=== PATIENT | female | born 1940 | race Caucasian/White ===

== ENCOUNTER → 2016-08-09 | Outpatient (CLI) | payer MEDICARE ==
[~2016-08-09] MED LIST: AMLO5TAB2 PO; ASP81TEC PO; ATOR20TA66 PO; CARV25TA PO; CHOL10002 GT; FISH OIL OMEGA1 EACH PO; FOLI1TAB24 PO; SERT50TA PO
--- NOTE | 2016-08-13 19:03 | Diagnostic Imaging Report ---
EXAMINATION: Digital mammogram bilateral screening. INDICATION: Screening. COMPARISON: This study was compared to the prior exam of 06/13/2011 and 03/07/2010. At this time, there are no current complaints. The current study was also evaluated with a Computer Aided Detection (CAD) system. FINDINGS: The fibroglandular tissue in both breasts is heterogeneously dense. This does limit the sensitivity of this exam. Overall, there does not appear to have been any significant change when compared to the prior study. No primary or secondary sign of malignancy is noted. The stereotactic clip in the right breast seen previously is again visualized and no different. IMPRESSION: 1. There is no evidence for malignancy. 2. The patient should have her annual bilateral screening mammogram on schedule in July of 2017. ACR BI-RADS Category 1: Negative. Result letter will be mailed to the patient. Note: At least 10% of breast cancer is not imaged by mammography. Dictated by: Dictated on workstation # [id number]
== END ==
LOC: RAD 09:32
PROVIDERS: ATTEND Nurse Practitioner Family
DX: Z12.31 Encounter for screening mammogram for malignant neoplasm of breast (principal)
CPT/HCPCS: 77067

== ENCOUNTER → 2017-08-13 | Outpatient (CLI) | payer MEDICARE | LOC: CARD 08:33 | PROVIDERS: ATTEND Internal Medicine Cardiovascular Disease | DX: I25.10 Atherosclerotic heart disease of native coronary artery without angina pectoris (principal); I10 Essential (primary) hypertension; E78.2 Mixed hyperlipidemia; I47.1 Supraventricular tachycardia; I08.0 Rheumatic disorders of both mitral and aortic valves | CPT/HCPCS: 93306; 93351 ==

== ENCOUNTER 2019-01-29 08:47 | Day surgery (SDC) | payer MEDICARE ==
[2019-01-29] VITALS (12 sets, daily range): BP systolic 108–172; BP diastolic 61–95
[~2019-01-29] VITALS: Ht 163 cm; Wt 57.0 kg
[2019-01-29] MEDS ORDERED: LIDOCAINE 1% INJ 20 ML 20 ML VIAL ONE (08:49)
[2019-01-29] MEDS ORDERED: HEParin (CATH LAB) 2,000 ML IV ONE (08:49)
[2019-01-29] MEDS ORDERED: NS IV 1000 ML 1,000 ML IV SCH (09:00)
[2019-01-29 09:17] LABS: MEAN PLATELET VOLUME 9.9 FL (7.4-10.4); RED CELL DISTRIBUTION WIDTH 12.9 % (10.0-14.5); WHITE BLOOD COUNT 6.8 10^3/uL (4.3-11.0)
[2019-01-29 09:36] LABS: ALANINE AMINOTRANSFERASE 21 U/L (0-55); ALBUMIN 4.5 GM/DL (3.2-4.5); ALKALINE PHOSPHATASE 69 U/L (40-136); BILIRUBIN,TOTAL 0.7 MG/DL (0.1-1.0); BUN/CREATININE RATIO 14; CALCIUM 9.6 MG/DL (8.5-10.1); CARBON DIOXIDE 29 MMOL/L (21-32); CHLORIDE 104 MMOL/L (98-107); CHOLESTEROL 186 MG/DL (< 200); CREATININE SERUM 0.85 MG/DL (0.60-1.30); GFR ESTIMATED > 60; GLUCOSE 101 MG/DL (70-105); HDL CHOLESTEROL 55 MG/DL (40-60); POTASSIUM 3.6 MMOL/L (3.6-5.0); SODIUM 140 MMOL/L (135-145); TOTAL PROTEIN 8.1 GM/DL (6.4-8.2); TRIGLYCERIDES 133 MG/DL (<150); VLDL CHOLESTEROL 27 MG/DL (5-40)
[2019-01-29] MEDS ORDERED: ASPI-983 PO (09:36)
[2019-01-29] MEDS ORDERED: OMEG-160 PO (09:36)
[2019-01-29] MEDS ORDERED: CHOL200012 PO (09:36)
[2019-01-29] MEDS ORDERED: AMLO5TAB9 PO (09:36)
[2019-01-29] MEDS ORDERED: CYAN-41 PO (09:36)
[2019-01-29] MEDS ORDERED: FOLI1TAB24 PO (09:36)
[2019-01-29] MEDS ORDERED: ATOR10TA66 PO (09:36)
[2019-01-29] MEDS ORDERED: CARV25TA PO (09:36)
[2019-01-29] MEDS ORDERED: ACET325T38 PO (09:43)
[2019-01-29] MEDS ORDERED: FLUT16SP22 NSEACH (09:43)
--- NOTE | 2019-01-29 09:44 | NUR ---
SPOKE WITH PT-SHE DID NOT HAVE HER BOTTLES BUT BROUGHT IN A MED LIST, I CALLED [facility] TO VERIFY MEDS AND WITH THIS I WAS ABLE TO COMPLETE THE MED REC. ALL MEDICATIONS HAD GOOD DATING PER [facility] AND THE PT WAS ABLE TO TELL ME HOW SHE TAKES HER MEDS. OTC MEDS: ASPIRIN 81M HS VITAMIN D3: 1 HS VITAMIN B12: 1 HS ACETAMINOPHEN 325M Q 8 H PRN FLONASE: UD PRN FISH OIL: 1 CAP HS
--- NOTE | 2019-01-29 09:47 | Diagnostic Imaging Report ---
INDICATION: Coronary artery disease Frontal chest obtained at 9:24 a.m. and is compared to 01/03/09. There is poststernotomy change with mild cardiomegaly. There are no focal infiltrates. There is no pneumothorax or pleural fluid. IMPRESSION: Cardiomegaly with postoperative changes. No acute infiltrate or pleural fluid. Dictated by: Dictated on workstation # [id number]
[2019-01-29] MEDS ORDERED: MIDAZOLAM 5 MG/5 ML (VERSED) VIAL ONE (09:57)
[2019-01-29] MEDS ORDERED: fentaNYL INJECTION 100 MCG/2 ML AMP ONE (09:58)
[2019-01-29] MEDS ORDERED: NITRO DRIP 25000 MCG/D5W 250 ML IV ONE (10:38)
[2019-01-29] MEDS ORDERED: HEParin 1000 UNIT/ML (10ML VIAL) FOR BOLUS ONE (10:38)
[2019-01-29] MEDS ORDERED: EPTIFIBATIDE BOLUS 0 ML IV ONE (10:39)
[2019-01-29] MEDS ORDERED: ATROPINE INJECTION 1 MG/10 ML SYR (ABBOTT) ONE (11:30)
[2019-01-29] MEDS ORDERED: ASPIRIN 325 MG (5 GR) TABLET ONE (11:55)
[2019-01-29] MEDS ORDERED: TICAGRELOR 90 MG TABLET (BRILINTA) PO ONE (11:56)
--- NOTE | 2019-01-29 11:58 | Cardiac Procedure Note-CS/ASA ---
Pre-Procedure Note Pre-Op Procedure Note H&P Reviewed The H&P was reviewed, patient examined and no changes noted. Date H&P Reviewed: Jan 29, 2019 Time H&P Reviewed: 11:58 Conscious Sedation Pre-Proced Time 11:58 ASA Score 3 For ASA 3 and 4: Consider anesthesia and medical clearance. Also, for patients with a history of failed moderate sedation consider anesthesia. Airway Lungs Heart ASA score ASA 1: a normal healthy patient ASA 2: a patient with a mild systemic disease (mid diabetes, controlled hypertension, obesity x ASA 3: a patient with a severe systemic disease that limits activity (angina, COPD, prior Myocardial infarction) ASA 4: a patient with an incapacitating disease that is a constant threat to life (CHF, renal failure) ASA 5: a moribund patient not expected to survive 24 hrs. (ruptured aneurysm) ASA 6: a declared brain- patient whose organs are being harvested. For emergent operations, add the letter E after the classification Mallampati Classification Grade 3 Sedation Plan Analgesia, Amnesia, Plan communicated to team members, Discussed options with patient/fam, Discussed risks with patient/fam The patient is an appropriate candidate to undergo the planned procedure, sedation, and anesthesia. The patient immediately re-assessed prior to indication. JOSE BOATENG MD Jan 29, 2019 11:58
[2019-01-29] MEDS: NS IV 1000 ML 1,000 ML IV SCH ×2 (12:06→18:45)
[2019-01-29] MEDS ORDERED: PATIENT MAY USE OWN MEDS, ALL PO SCH (12:15)
[2019-01-29] MEDS ORDERED: FLUTICASONE NASAL SPRAY (FLONASE) 16 GM BTL NS PRN (12:15)
[2019-01-29] MEDS ORDERED: ACETAMINOPHEN 325 MG TABLET PO PRN (12:15)
--- NOTE | 2019-01-29 12:24 | NUR ---
patient arrived on unit at this time. Upon checking groin site with cathlab RN EFRAIN noted hematoma forming et shadowing on dressing. KT RN applied groin pressure for approx 15 minutes. Upon completion this nurse et DISHA RN checked groin again et noted possible hematoma forming again, at that time EJ RN held pressure for approx 15 more minutes. This nurse came to check groin site again upon competion. No hematoma noted upon recheck.
--- NOTE | 2019-01-29 14:33 | Cardiac Cath Report ---
Cardiac Cath Report Physician (s)/Menagerie Superintendent (s) Physician JOSE BOATENG MD Pre-Procedure Diagnosis Pre-Procedure Diagnosis: Chest pain, coronary artery disease Post-Procedure Note Procedure Start Date: Jan 29, 2019 Name of Procedure: Left heart catheterization Vein graft angiogram PERALTA angiogram PTCA with stent to the right coronary artery Findings/Procedure Note PROCEDURE NOTE: 78-year-old lady with history of coronary artery disease, CABG 2, has been having accelerating angina, scheduled for cardiac catheterization possible PTCA After explaining the procedure to the patient, all pros and cons were explained, all questions were answered. The patient signed the consent and then she was placed on the cardiac catheterization laboratory. Groin was prepped SL fashion local anesthesia was used. Sheath placed in the artery. John right and left catheter were used to access the coronary system.Vein Graft evaluated. PERALTA evaluated. Pigtail was used to access the left ventricular cavity. Left ventriculogram was done showing normal left ventricle size and function with ejection fraction 60 percent Patient was noted to have occlusion of the PERALTA and a vein graft, severe stenosis at the proximal and mid LAD and subtotal occlusion at the midright coronary artery, I decided to proceed with intervention on the right coronary artery, 6000 units of heparin were given then I used JR guide that into the right coronary artery but I was unable to advance the wire through the artery due to the position of the guide, I exchanged it into short tip right coronary guide without success day and modified the right coronary artery and attempted again without success then used AR 1 without success then I used Gilbert guide that was successful in accessing the right coronary artery, had difficulty advancing the wire through the subtotal occlusion then predilated with 2.0 balloon. I was unable to advance the stent subsequently I used 2.5 balloon with multiple inflation, still was unable to advance the stent I readvanced the balloon then advanced guide-liner parted distally removed the balloon and advanced resolute integrity 2.2522 mm Medtronic stent positioned it carefully, during that period patient had ST elevation transient episode of bradycardia responded to atropine then did multiple inflation then advanced noncompliant balloon without success in advancing to the stent I removed the noncompliant balloon and used a compliant 2.515 mm balloon and did multiple inflation up to 16 halie in the proximal portion with excellent results At the end of the procedure the sheath was removed. Closure device was used FINDINGS: Hemodynamics LV 94/17, end-diastolic of 17 Aorta 146/69 mean of 102 ANATOMY: Left Main has mild disease nonobstructive disease Left Anterior Descending has severe disease proximally and moderate to severe at the midportion the proximal lesion is involving the ostium of a diagonal and septal branch, the PERALTA to LAD is occluded Left Circumflex has [id number] disease nonobstructive disease Right Coronory Artery is dominant artery with subtotal occlusion, occluded vein graft to the right coronary artery, complex intervention as described above successful deployment of resolute integrity 2.2522 mm stent expanded to 2.5 distally and 2.65 proximally with excellent results PERALTA to LAD is occluded Vein Graft to the right coronary artery is occluded LV Gram was done showing normal left ventricular size and systolic function estimated ejection fraction 60 percent CONCLUSION: 1. Occlusion of the vein graft to the right coronary artery with subtotal occlusion at the midright coronary artery, calcified artery, complex intervention with deployment of resolute integrity 2.2522 mm expanded to 2.5 mm distally and 2.65 mm proximally with excellent results. 2. Occlusion of the PERALTA to LAD with severe stenosis at the proximal LAD, moderate severe stenosis at the midportion, the proximal lesion is involving the ostium of the diagonal and septal branches 3. Normal left ventricular size and systolic function estimated ejection fraction 60 percent 4. Mild disease in the circumflex artery DISCUSSION AND RECOMMENDATION: patient was started on aspirin and Brilinta, she will need complex intervention to the proximal and mid LAD with possible double wiring to the LAD and diagonal. Anesthesia Type: Conscious Sedation Estimated blood loss (mL): 35 ml Contrast Amount: 228 ml Total Radiation Dose: 780 mGy Post-Procedure Diagnosis Post-operative diagnosis: Chest pain Coronary artery disease Hypertension Hyperlipidemia JOSE BOATENG MD Jan 29, 2019 14:33
[2019-01-29] MEDS ORDERED: ASPIRIN E.C. 81 MG (ECOTRIN) TAB PO SCH (21:00)
[2019-01-29] MEDS ORDERED: FOLIC ACID 1 MG TAB PO SCH (21:00)
[2019-01-29] MEDS ORDERED: OMEGA 3 (FISH OIL) 1000 MG CAP PO SCH (21:00)
[2019-01-29] MEDS ORDERED: amLODIPine 5 MG (NORVASC) TAB PO SCH (21:00)
[2019-01-29] MEDS: TICAGRELOR 90 MG TABLET (BRILINTA) PO SCH (21:46)
[2019-01-29] MEDS: Carvedilol 25 MG TABLET PO SCH (21:52)
[2019-01-30] VITALS: BP 128/69
[2019-01-30 03:46] LABS: HEMOGLOBIN 11.3 G/DL (11.5-16.0); MEAN PLATELET VOLUME 10.4 FL (7.4-10.4); RED CELL DISTRIBUTION WIDTH 12.6 % (10.0-14.5); WHITE BLOOD COUNT 6.4 10^3/uL (4.3-11.0)
[2019-01-30 04:00] VITALS: BP 132/68
[2019-01-30 04:05] LABS: BUN/CREATININE RATIO 17; CALCIUM 8.5 MG/DL (8.5-10.1); CARBON DIOXIDE 22 MMOL/L (21-32); CHLORIDE 108 MMOL/L (98-107); GFR ESTIMATED > 60; GLUCOSE 87 MG/DL (70-105); POTASSIUM 3.4 MMOL/L (3.6-5.0); SODIUM 140 MMOL/L (135-145)
[2019-01-30 07:00] VITALS: BP 165/71
[2019-01-30] MEDS: NS IV 1000 ML 1,000 ML IV SCH (07:39)
--- NOTE | 2019-01-30 07:50 | Cardiology Progress Note ---
Subjective Date Seen by Provider: Jan 30, 2019 Time Seen by Provider: 07:42 Subjective/Events-last exam Patient is laying down in a chair, feeling better, no chest pain, groin is healing well Review of Systems General: No Chills, No Night Sweats, No Fatigue, No Malaise, No Appetite, No Other HEENT: No Head Aches, No Visual Changes, No Eye Pain, No Ear Pain, No Dysph kylah, No Sinus Congestion, No Post Nasal Drip, No Sore Throat, No Other Pulmonary: No Dyspnea, No Cough, No Pleuritic Chest Pain, No Other Cardiovascular: No: Chest Pain, Palpitations, Orthopnea, Paroxysmal Noc. Dyspnea, Edema, Lt Headedness, Other Objective-Cardiology Exam Last Set of Vital Signs Vital Signs 01/30/19 01/30/19 04:00 07:00 Temp 37.2 Pulse 78 Resp 16 B/P (MAP) 132/68 (89) Pulse Ox 93 O2 Delivery Room Air Capillary Refill : Less Than 3 Seconds I&O Intake and Output 01/30/19 00:00 Intake Total 1000 ml Balance 1000 ml Intake IV Total 1000 ml General: Alert, Oriented X3, Cooperative HEENT: Atraumatic, PERRLA Neck: Supple, No JVD, No Thyromegaly Lungs: Clear to Auscultation, Normal Air Movement Heart: Regular Rate, Normal S1, Normal S2, No Murmurs Abdomen: Normal Bowel Sounds, Soft, No Tenderness, No Hepatosplenomegaly, No Masses Extremities: No Clubbing, No Cyanosis, No Edema, Normal Pulses, No Tenderness/Swelling Skin: No Rashes, No Breakdown, No Significant Lesion Neuro: Normal Gait, Normal Speech, Strength at 5/5 X4 Ext, Normal Tone, Sensation Intact Psych/Mental Status: Mental Status NL, Mood NL Results Lab Laboratory Tests 01/29/19 09:08 01/30/19 02:58 A/P-Cardiology Admission Diagnosis Coronary artery disease Chest pain Hypertension Hyperlipidemia Assessment/Plan Coronary artery disease, history of CABG, cardiac catheterization was stent to the right coronary artery as described below 1. Occlusion of the vein graft to the right coronary artery with subtotal occlusion at the midright coronary artery, calcified artery, complex intervention with deployment of resolute integrity 2.2522 mm expanded to 2.5 mm distally and 2.65 mm proximally with excellent results. 2. Occlusion of the PERALTA to LAD with severe stenosis at the proximal LAD, moderate severe stenosis at the midportion, the proximal lesion is involving the ostium of the diagonal and septal branches 3. Normal left ventricular size and systolic function estimated ejection fraction 60 percent 4. Mild disease in the circumflex artery Chest pain, unstable angina, reporting improvement. Continue to monitor Hypertension Hyperlipidemia Continue current medication, educated in length about condition and compliance with medication. I will arrange for follow-up as an outpatient JOSE BOATENG MD Jan 30, 2019 07:50
[2019-01-30] MEDS ORDERED: TICA90TA PO (07:52)
[2019-01-30] MEDS ORDERED: ATOR20TA49 PO (07:52)
--- NOTE | 2019-01-30 07:53 | Discharge Inst-Post CATH ---
Discharge Inst-CATH/EP Problems Reviewed?: Yes Post Cardiac Cath/EP D/C Inst Follow Up/Plan Appointment with Dr. BOATENG's office in one to 2 weeks <b>CARDIAC CATH/EP PROCEDURE DISCHARGE INSTRUCTIONS</b> ACTIVITY * Go Home directly and rest. * Limit activity of the leg (or wrist if it was used) for 7 days including a erobics, swimming, jogging, bicycling, etc. * Restrict stair-climbing for 7 days if possible, if not, climb up with your non-cath leg, then bring together on the same step. * Avoid lifting, pushing, pulling or excessive movement of the affected extre mity for 7 days. * Customary sexual activity may be resumed after 2 days-use caution not to use a position that strains or causes pain to the affected extremity. * No driving for 24 hours. * NO SMOKING. * Avoid straining for bowel movements for 7 days. * Gentle walking on level ground is allowed. * Returning to work will depend on the type of procedure and the results. Your d octor will discuss this with you. CALL YOUR DOCTOR FOR ANY OF THE FOLLOWING: *If bleeding from the puncture site occurs- Apply gentle pressure to site with clean cloth and call your doctor or EMS. * If a knot or lump forms under the skin, increases in size, or causes pain. * If bruising appears to be worsening or moving further down your leg instead of disappearing. * Temperature above 101 F. CARE OF YOUR GROIN INCISION; * Bruising or purple discoloration of the skin near the puncture site is common. * You may shower only, no bathtub bathing for 5 days. Be careful to avoid slipping as your leg may feel stiff. * If a closure device was used on your femoral artery, please see the attached guide regarding care of the device and your leg. * Leave dressing on FOR 24 hours. CARE OF YOUR WRIST INCISION; * Bruising or purple discoloration of the skin near the puncture site is common. * You may shower. * DO NOT submerge wrist. * Leave dressing on FOR 24 hours. JOSE BOATENG MD Jan 30, 2019 07:53
[2019-01-30] MEDS: TICAGRELOR 90 MG TABLET (BRILINTA) PO SCH (08:16)
[2019-01-30] MEDS: Carvedilol 25 MG TABLET PO SCH (08:17)
[2019-01-30] MEDS ORDERED: ASPIRIN E.C. 81 MG (ECOTRIN) TAB PO SCH (09:00)
== END 2019-01-30 09:10 | disposition home or self-care (01) ==
LOC: CATH 08:47 → ICU 13:28 → CATH 01-30 09:10
PROVIDERS: ATTEND Internal Medicine Cardiovascular Disease
DX: I25.10 Atherosclerotic heart disease of native coronary artery without angina pectoris (principal); I10 Essential (primary) hypertension; E78.2 Mixed hyperlipidemia; Z88.2 Allergy status to sulfonamides; Z88.8 Allergy status to other drugs, medicaments and biological substances; Z79.82 Long term (current) use of aspirin; Z82.49 Family history of ischemic heart disease and other diseases of the circulatory system; Z95.1 Presence of aortocoronary bypass graft
CPT/HCPCS: 36415; 71045; 80048; 80053; 80061; 85027; 85610; 85730; 87081; 93005; 93459

== ENCOUNTER 2019-05-17 10:49 | Outpatient (RCR) | payer MEDICARE ==
[~2019-05-17 10:49] MED LIST changes: +ACET325T38 PO; +AMLO5TAB9 PO; +ASPI-983 PO; +ATOR10TA66 PO; +ATOR20TA49 PO; +CHOL200012 PO; +CYAN-41 PO; +FLUT16SP22 NSEACH; +OMEG-160 PO; +TICA90TA PO
== END 2019-05-27 | disposition home or self-care (01) ==
LOC: CR 10:49
PROVIDERS: ATTEND Internal Medicine Cardiovascular Disease
DX: Z48.812 Encounter for surgical aftercare following surgery on the circulatory system (principal); Z95.5 Presence of coronary angioplasty implant and graft
CPT/HCPCS: 93798

== ENCOUNTER 2019-06-25 10:15 | Outpatient (RCR) | payer MEDICARE | END 2019-09-09 | disposition home or self-care (01) | LOC: CR 10:15 | PROVIDERS: ATTEND Internal Medicine Cardiovascular Disease | DX: Z48.812 Encounter for surgical aftercare following surgery on the circulatory system (principal); Z95.5 Presence of coronary angioplasty implant and graft | CPT/HCPCS: 93798 ==

== ENCOUNTER 2019-07-12 14:22 | Outpatient (RCR) | payer MEDICARE | END 2019-07-28 | disposition home or self-care (01) | LOC: CR3 14:22 | PROVIDERS: ATTEND Internal Medicine Cardiovascular Disease | DX: Z95.5 Presence of coronary angioplasty implant and graft (principal); Z29.8 Encounter for other specified prophylactic measures ==

== ENCOUNTER 2020-07-06 19:52 | Emergency (ER) | payer MEDICARE ==
[~2020-07-06] VITALS: Ht 170.1 cm; Wt 74.8 kg
[~2020-07-06 19:52] MED LIST changes: +AMLO-250 PO; -AMLO5TAB9 PO; +ASPI-1238 PO; -ASPI-983 PO; +FOLI1TAB33 PO
--- NOTE | 2020-07-06 20:29 | Diagnostic Imaging Report ---
PROCEDURE: CT head w/o, r/o stroke. TECHNIQUE: Multiple contiguous axial images were obtained through the brain without the use of intravenous contrast. Auto Exposure Controls were utilized during the CT exam to meet ALARA standards for radiation dose reduction. INDICATION: Blood pressure, headache, stroke. COMPARISON: None. FINDINGS: There is slight cerebral volume loss and chronic microvascular changes. There is no focus of acute ischemia or hemorrhage. There is no extra-axial fluid collection or mass. There is no midline shift or mass effect. There is no dense vessel sign. There is a chronic-appearing 3 mm lacunar infarct in the left basal ganglia. The bony calvarium, paranasal sinuses and mastoids are unremarkable. IMPRESSION: No acute intracranial abnormality. Dictated by: Dictated on workstation # [id number]
--- NOTE | 2020-07-06 20:31 | ED Cardiac General ---
History of Present Illness General Chief Complaint: Cardiac/General Problems Stated Complaint: HIGH BLOOD PRESSURE / HEADACHE Source: patient History of Present Illness Date Seen by Provider: Jul 06, 2020 Time Seen by Provider: 20:07 Initial Comments PT ARRIVES VIA POV FROM HOME C/O ELEVATED BLOOD PRESSURE TONIGHT--WAS UP TO 212/123 JUST PRIOR TO ARRIVAL C/O HEADACHE SINCE LAST PM--HEADACHE IN BACK OF HEAD/POSTERIOR NECK AREA STATES SHE FELT FINE ALL DAY TODAY, THEN HEADACHE CAME BACK ABOUT 45 MINUTES PRIOR TO ARRIVAL. TOOK TYLENOL 45 MINUTES AGO RATES PAIN 5/10 AT THIS TIME. SLIGHT NAUSEA, NO VOMITING NO DIZZINESS NO PARESTHESIAS ORE MOTOR DEFICITS NO CHEST PAIN NO SHORTNESS OF BREATH NO PALPITATIONS NO VISION CHANGES PT TAKES ALL OF HER MEDICATIONS IN THE EVENING AT 2000, AND HAS NOT TAKEN ANY OF THEM YET THE ONLY MEDICATION SHE TAKES IN THE MORNING IS CARVEDILOL ( TAKES IT BID) NO MISSED DOSES OF MEDICATIONS NO RECENT DOSE CHANGES PT HAS HISTORY OF CAD WITH CABG X 2 VESSELS, AND STENT X 1 TAKES BABY ASPIRIN, NO OTHER BLOOD THINNERS. NO HISTORY OF STROKE OR ANEURYSM. PT CHECKS HER BLOOD PRESSURE MULTIPLE TIMES, ALL DAY AND ALL NIGHT, BOTH ARMS, ETC. AND EACH READING HIGHER THAN THE PREVIOUS ONE AND PT GETS INCREASINGLY ANXIOUS BP ELEVATES. PCP: DR. LAZAR SOAP BOILER: DR. BOATENG Allergies and Home Medications Allergies Coded Allergies: Sulfa (Sulfonamide Antibiotics) (Verified Allergy, Unknown, 01/03/09) Home Medications Acetaminophen 325 Mg Tablet, 325 MG PO Q8H PRN for PAIN-MILD, (Reported) Amlodipine Besylate 5 Mg Tablet, 5 MG PO HS, (Reported) Aspirin 81 Mg Tablet.dr, 81 MG PO HS, (Reported) Atorvastatin Calcium 20 Mg Tablet, 20 MG PO DAILY Prescribed by: JOSE BOATENG on 01/30/19 0752 Carvedilol 25 Mg Tablet, 25 MG PO BID, (Reported) Cholecalciferol (Vitamin D3) 2,000 Unit Capsule, 2,000 UNIT PO HS, (Reported) Cyanocobalamin (Vitamin B-12) 1,000 Mcg Tablet, 1,000 MCG PO HS, (Reported) Fluticasone Propionate 16 Gm Carpenter.susp, 1 SPRAY NSEACH BID PRN for CONGESTION, (Reported) Folic Acid 1 Mg Tablet, 1 MG PO HS, (Reported) [place]-3/Dha/Epa/Fish Oil 1 Each Capsule, 1 EACH PO HS, (Reported) Ticagrelor 90 Mg Tablet, 90 MG PO BID Prescribed by: JOSE BOATENG on 01/30/19 0754 Patient Home Medication List Home Medication List Reviewed: Yes Review of Systems Review of Systems Constitutional: no symptoms reported; No chills, No diaphoresis, No dizziness, No fever, No malaise, No weakness EENTM: No Symptoms Reported; No Blurred Vision, No Double Vision Respiratory: No Symptoms Reported Cardiovascular: See HPI; Denies Chest Pain, Denies Edema, Denies Irregular Heart Rate, Denies Lightheadedness, Denies Palpitations, Denies Syncope Gastrointestinal: See HPI; Denies Abdominal Pain; Nausea; Denies Vomiting Genitourinary: No Symptoms Reported Musculoskeletal: see HPI, back pain, neck pain, other (HAD LOW BACK PAIN ON FRIDAY AND FRIDAY, BUT NOT TODAY--STATES HER LEGS "FELT FUNNY" WHEN SHE HAD THE BACK PAIN--SYMPTOMS WENT AWAY WITH TYLENOL) Skin: no symptoms reported Psychiatric/Neurological: See HPI, Headache; Denies Numbness, Denies Paresthesia, Denies Seizure, Denies Tingling, Denies Tremors, Denies Weakness Endocrine: No Symptoms Reported Hematologic/Lymphatic: No Symptoms Reported Past Ifrbwjd-Xkbdel-Xrsrqn Hx Past Med/Social Hx: Reviewed and Corrections made Patient Social History Alcohol Use: Denies Use Drug of Choice: DENIES Smoking Status: Never a Smoker 2nd Hand Smoke Exposure: No Immunizations Up To Date Date of Pneumonia Vaccine: Jan 30, 2016 Past Medical History Surgeries: Yes (TONSILLECTOMY 1949;WISDOM TEETH;COLONOSCOPY/POLYPECTOMY;CABG;STENT) Adenoidectomy, Cardiac, CABG, Coronary Stent, Tonsillectomy Respiratory: No Currently Using CPAP: No Currently Using BIPAP: No Cardiac: Yes (SEE BELOW) Coronary Artery Disease, High Cholesterol, Hypertension, Irregular Heartbeat, Peripheral Vascular Neurological: Yes Vertigo Reproductive Disorders: No Genitourinary: No Gastrointestinal: Yes (DIVERTICULAR DISEASE NOTED ON SCREENING COLONOSCOPY) Diverticulosis, Polyps Musculoskeletal: Yes (CHRONIC NECK PAIN ) Endocrine: No HEENT: Yes (S/P T&A) Cancer: No Psychosocial: No Integumentary: Yes Psoriasis Blood Disorders: No Family Medical History CARDIAC HISTORY: -CORONARY ARTERY DISEASE -S/P 2 VESSEL CABG 2008 -CARDIAC CATH WITH PTCA AND STENT X 1 TO RCA 02/08/[address] BOATENG -MILD CAROTID DISEASE, NO INTERVENTION -PAROXYSMAL ATRIAL TACHYCARDIA Physical Exam Vital Signs Vital Signs - First Documented 07/06/20 20:41 Temp 37.0 Pulse 106 Resp 19 B/P (MAP) 204/114 (144) Pulse Ox 97 O2 Delivery Room Air Capillary Refill : Less Than 3 Seconds Height, Weight, BMI Height: 5'5.00" Weight: 131lbs. oz. [id number]; 21.45 BMI Method: General Appearance: No Apparent Distress, WD/WN, Anxious Neck: Normal Inspection Respiratory: Normal Breath Sounds, No Accessory Muscle Use, No Respiratory Distress Cardiovascular: Regular Rate, Rhythm, No Edema, No JVD, No Murmur, Normal Peripheral Pulses Gastrointestinal: No Organomegaly, No Pulsatile Mass, Non Tender, Soft Extremity: Normal Inspection, Normal Range of Motion, Non Tender, No Calf Tenderness, No Pedal Edema Neurologic/Psychiatric: Alert, Oriented x3, No Motor/Sensory Deficits, social services coordinator II- XII Norm as Tested Skin: Normal Color, Warm/Dry Progress/Results/Core Measures Results/Orders Lab Results Laboratory Tests Test 07/06/20 20:10 Range/Units White Blood Count 5.7 4.3-11.0 10^3/uL Red Blood Count 4.07 3.80-5.11 10^6/uL Hemoglobin 13.1 11.5-16.0 g/dL Hematocrit 40 35-52 % Mean Corpuscular Volume 98 80-99 fL Mean Corpuscular Hemoglobin 32 25-34 pg Mean Corpuscular Hemoglobin Concent 33 32-36 g/dL Red Cell Distribution Width 12.5 10.0-14.5 % Platelet Count 190 130-400 10^3/uL Mean Platelet Volume 10.2 9.0-12.2 fL Immature Granulocyte % (Auto) 0 % Neutrophils (%) (Auto) 43 42-75 % Lymphocytes (%) (Auto) 44 12-44 % Monocytes (%) (Auto) 10 0-12 % Eosinophils (%) (Auto) 2 0-10 % Basophils (%) (Auto) 1 0-10 % Neutrophils # (Auto) 2.5 1.8-7.8 10^3/uL Lymphocytes # (Auto) 2.5 1.0-4.0 10^3/uL Monocytes # (Auto) 0.6 0.0-1.0 10^3/uL Eosinophils # (Auto) 0.1 0.0-0.3 10^3/uL Basophils # (Auto) 0.0 0.0-0.1 10^3/uL Immature Granulocyte # (Auto) 0.0 0.0-0.1 10^3/uL Prothrombin Time 13.2 12.2-14.7 SEC INR Comment 1.0 0.8-1.4 Activated Partial Thromboplast Time 32 24-35 SEC Sodium Level 140 135-145 MMOL/L Potassium Level 3.7 3.6-5.0 MMOL/L Chloride Level 102 98-107 MMOL/L Carbon Dioxide Level 25 21-32 MMOL/L Anion Gap 13 5-14 MMOL/L Blood Urea Nitrogen 15 7-18 MG/DL Creatinine 0.84 0.60-1.30 MG/DL Estimat Glomerular Filtration Rate > 60 BUN/Creatinine Ratio 18 Glucose Level 100 70-105 MG/DL Calcium Level 9.6 8.5-10.1 MG/DL Corrected Calcium 8.5-10.1 MG/DL Magnesium Level 2.2 1.6-2.4 MG/DL Total Bilirubin 0.4 0.1-1.0 MG/DL Aspartate Amino Transf (AST/SGOT) 27 5-34 U/L Alanine Aminotransferase (ALT/SGPT) 20 0-55 U/L Alkaline Phosphatase 72 40-136 U/L Total Creatine Kinase 144 29-168 U/L Creatine Kinase MB 1.3 <6.6 NG/ML Troponin I < 0.028 <0.028 NG/ML B-Type Natriuretic Peptide 108.5 H <100.0 PG/ML Total Protein 8.2 6.4-8.2 GM/DL Albumin 4.6 H 3.2-4.5 GM/DL TSH Sieper Testing 2.92 0.35-4.94 UIU/ML My Orders Orders - TRUDI MORRISON DO Ed Iv/Invasive Line Start (07/06/20 20:11) Ekg Tracing (07/06/20 20:11) Monitor-Rhythm Ecg Trace Only (07/06/20 20:11) Ct Head Wo-R/O Stroke (07/06/20 20:11) BNP (07/06/20 20:11) Cbc With Automated Diff (07/06/20 20:11) Comprehensive Metabolic Panel (07/06/20 20:11) Creatine Kinase (07/06/20 20:11) Creatine Kinase Mb (07/06/20 20:11) Magnesium (07/06/20 20:11) Protime With Inr (07/06/20 20:11) Partial Thromboplastin Time (07/06/20 20:11) Thyroid Analyzer (07/06/20 20:11) Troponin I (07/06/20 20:11) Chest 1 View, Ap/Pa Only (07/06/20 20:11) Ct Angio Head/Neck (07/06/20 20:56) Iohexol Injection (Omnipaque 350 Mg/Ml 1 (07/06/20 21:00) Received Contrast (Hold Metformin- Contr (07/06/20 21:00) Sodium Chloride Flush (Catheter Flush Sy (07/06/20 21:00) Ns (Ivpb) (Sodium Chloride 0.9% Ivpb Bag (07/06/20 21:00) Medications Given in ED Current Medications Medications Dose Ordered Sig/Marcos Route Start Time Stop Time Status Last Admin Dose Admin Iohexol 100 ml ONCE ONCE IV 07/06/20 21:00 07/06/20 21:01 DC 07/06/20 21:10 75 ML Sodium Chloride 10 ml NEEDED PRN IV 07/06/20 21:00 07/06/20 21:57 DC 07/06/20 21:10 10 ML Sodium Chloride 100 ml ONCE ONCE IV 07/06/20 21:00 07/06/20 21:01 DC 07/06/20 21:10 80 ML Vital Signs/I&O 07/06/20 07/06/20 20:41 21:56 Temp 37.0 37.0 Pulse 106 69 Resp 19 16 B/P (MAP) 204/114 (144) 151/74 (144) Pulse Ox 97 95 O2 Delivery Room Air Room Air Progress Progress Note : Progress Note 2034--BP DOWN TO 168/80 WITHOUT TREATMENT. PT ALLOWED TO TAKE HER NORMAL NIGHT TIME MEDICATIONS, VERIFIED AND SUPERVISED BY RN 2099--BP DOWN TO 140'S/80'S BP CONTINUED TO TREND DOWNWARD. PT ASYMPTOMATIC AT TIME OF DISMISSAL Initial ECG Impression Date: Jul 06, 2020 Initial ECG Impression Time: 20:14 Initial ECG Rate: 82 Initial ECG Rhythm: Normal Sinus Diagnostic Imaging Comments CT HEAD--PER RADIOLOGIST REPORT AT 2030 FINDINGS: There is slight cerebral volume loss and chronic microvascular changes. There is no focus of acute ischemia or hemorrhage. There is no extra-axial fluid collection or mass. There is no midline shift or mass effect. There is no dense vessel sign. There is a chronic-appearing 3 mm lacunar infarct in the left basal ganglia. The bony calvarium, paranasal sinuses and mastoids are unremarkable. IMPRESSION: No acute intracranial abnormality CXR--PER RADIOLOGIST REPORT AT 2044 FINDINGS: Stable cardiac enlargement. Lungs are clear. There is no pneumothorax. Sternal wires are midline. Osseous structures are age-appropriate. IMPRESSION: No acute cardiopulmonary finding. CT ANGIOGRAM HEAD/NECK--PER RADIOLOGIST REPORT AT 2134 FINDINGS: Visualized arch anatomy is normal. The vertebral arteries are co-dominant. Minimal atherosclerosis is seen in the carotid bulbs. There is no stenosis or occlusion. There is no dissection. The basilar artery and [place] are intact. There is no abnormal enhancement or mass. Venous structures are grossly normal. There is no large vessel occlusion, aneurysm or AVM. Advanced degenerative changes seen throughout the cervical spine. Soft tissues are otherwise unremarkable. There is no osseous lesion. IMPRESSION: 1. Minimal atherosclerosis of the carotid bulbs. No stenosis identified. 2. No intracranial large vessel occlusion, aneurysm or AVM. 3. No abnormal enhancement or mass. 4. Advanced degenerative changes throughout the disc spaces and facet joints of the cervical spine. Reviewed: Reviewed by Me Departure Impression Primary Impression: HTN (hypertension) Disposition: 01 HOME, SELF-CARE Condition: Improved Departure-Patient Inst. Referrals: ISRAEL LAZAR MD (PCP/Family) Primary Care Physician Patient Instructions: High Blood Pressure (DC), DASH Diet Add. Discharge Instructions: TAKE YOUR MEDICATION PRESCRIBED FOR NOW, DO NOT CHECK YOUR BLOOD PRESSURE, UNLESS YOU ARE HAVING SYMPTOMS-- FOLLOW UP WITH DR. LAZAR OR DR BOATENG THIS WEEK FOR FURTHER CARE, RETURN TO ER IF WORSE All discharge instructions reviewed with patient and/or family. Voiced understanding. TRUDI MORRISON DO Jul 06, 2020 20:31
[2020-07-06 20:32] LABS: BASOPHILS % (AUTO) 1 % (0-10); EOSINOPHILS # (AUTO) 0.1 10^3/uL (0.0-0.3); EOSINOPHILS % (AUTO) 2 % (0-10); HEMATOCRIT 40 % (35-52); HEMOGLOBIN 13.1 g/dL (11.5-16.0); LYMPHOCYTES # (AUTO) 2.5 10^3/uL (1.0-4.0); LYMPHOCYTES % (AUTO) 44 % (12-44); MEAN CORPUSCULAR HEMOGLOBIN 32 pg (25-34); MEAN CORPUSCULAR HGB CONC 33 g/dL (32-36); MEAN CORPUSCULAR VOLUME 98 fL (80-99); MEAN PLATELET VOLUME 10.2 fL (9.0-12.2); MONOCYTES # (AUTO) 0.6 10^3/uL (0.0-1.0); MONOCYTES % (AUTO) 10 % (0-12); NEUTROPHILS # (AUTO) 2.5 10^3/uL (1.8-7.8); NEUTROPHILS % (AUTO) 43 % (42-75); PLATELET COUNT 190 10^3/uL (130-400); WHITE BLOOD COUNT 5.7 10^3/uL (4.3-11.0)
--- NOTE | 2020-07-06 20:36 | Diagnostic Imaging Report ---
INDICATION: Hypertension. COMPARISON: 01/29/2019. EXAMINATION: Single view of the chest was obtained. FINDINGS: Stable cardiac enlargement. Lungs are clear. There is no pneumothorax. Sternal wires are midline. Osseous structures are age-appropriate. IMPRESSION: No acute cardiopulmonary finding. Dictated by: Dictated on workstation # [id number]
[2020-07-06 20:39] LABS: PROTHROMBIN TIME PATIENT 13.2 SEC (12.2-14.7)
[2020-07-06 20:48] LABS: ALANINE AMINOTRANSFERASE 20 U/L (0-55); ALBUMIN 4.6 GM/DL (3.2-4.5); ALKALINE PHOSPHATASE 72 U/L (40-136); BILIRUBIN,TOTAL 0.4 MG/DL (0.1-1.0); BUN/CREATININE RATIO 18; CALCIUM 9.6 MG/DL (8.5-10.1); CARBON DIOXIDE 25 MMOL/L (21-32); CHLORIDE 102 MMOL/L (98-107); CREATINE KINASE 144 U/L (29-168); CREATININE SERUM 0.84 MG/DL (0.60-1.30); GFR ESTIMATED > 60; GLUCOSE 100 MG/DL (70-105); MAGNESIUM 2.2 MG/DL (1.6-2.4); POTASSIUM 3.7 MMOL/L (3.6-5.0); SODIUM 140 MMOL/L (135-145); TOTAL PROTEIN 8.2 GM/DL (6.4-8.2)
[2020-07-06] MEDS ORDERED: HOLD METFORMIN - RECEIVED CONTRAST 20 ML VIAL IV SCH (21:00)
[2020-07-06] MEDS ORDERED: CATHETER FLUSH 10 ML SYR IV PRN (21:00)
[2020-07-06] MEDS ORDERED: NS 100 ML (IVPB) BAG IV ONE (21:00)
[2020-07-06] MEDS ORDERED: IOHEXOL 350 MG/ML 100 ML (OMNIPAQUE 350) VIAL IV ONE (21:00)
[2020-07-06 21:08] LABS: CREATINE KINASE MB 1.3 NG/ML (<6.6); TSH (THYROID ANALYZER) 2.92 UIU/ML (0.35-4.94)
--- NOTE | 2020-07-06 21:24 | Diagnostic Imaging Report ---
PROCEDURE: CT angiography of the head and CT angiography of the neck with and without contrast. TECHNIQUE: Contiguous noncontrast images were obtained from the skull base through the vertex. After intravenous contrast administration, helical CT angiography of the neck was performed. Source data was reformatted into 3D MIP projections. Delayed post contrast acquisition was also obtained. Auto Exposure Controls were utilized during the CT exam to meet ALARA standards for radiation dose reduction. INDICATION: Headache. COMPARISON: None. FINDINGS: Visualized arch anatomy is normal. The vertebral arteries are co-dominant. Minimal atherosclerosis is seen in the carotid bulbs. There is no stenosis or occlusion. There is no dissection. The basilar artery and [place] are intact. There is no abnormal enhancement or mass. Venous structures are grossly normal. There is no large vessel occlusion, aneurysm or AVM. Advanced degenerative changes seen throughout the cervical spine. Soft tissues are otherwise unremarkable. There is no osseous lesion. IMPRESSION: 1. Minimal atherosclerosis of the carotid bulbs. No stenosis identified. 2. No intracranial large vessel occlusion, aneurysm or AVM. 3. No abnormal enhancement or mass. 4. Advanced degenerative changes throughout the disc spaces and facet joints of the cervical spine. Dictated by: Dictated on workstation # [id number]
[2020-07-06 21:56] VITALS: BP 151/74
== END 2020-07-06 21:57 | disposition home or self-care (01) ==
LOC: EDUNIT# 19:52 → ER 19:53
DX: I10 Essential (primary) hypertension (principal); I25.10 Atherosclerotic heart disease of native coronary artery without angina pectoris; E78.00 Pure hypercholesterolemia, unspecified; Z88.2 Allergy status to sulfonamides; Z79.82 Long term (current) use of aspirin; Z79.51 Long term (current) use of inhaled steroids; Z95.5 Presence of coronary angioplasty implant and graft; Z95.1 Presence of aortocoronary bypass graft
CPT/HCPCS: 36415; 70450; 70496; 70498; 71045; 80053; 82550; 82553; 83735; 83880; 84443; 84484; 85025; 85610; 85730; 93005; 93041

== ENCOUNTER → 2020-07-18 | Outpatient (CLI) | payer MEDICARE | LOC: CARD 10:48 | PROVIDERS: ATTEND Internal Medicine Cardiovascular Disease | DX: I10 Essential (primary) hypertension (principal); R07.9 Chest pain, unspecified | CPT/HCPCS: 93306 ==

== ENCOUNTER → 2020-08-09 | Outpatient (CLI) | payer MEDICARE ==
[~2020-08-09] VITALS: Ht 162 cm; Wt 57.0 kg
[~2020-08-09] MED LIST changes: +REGADENOSON 0.4 MG/5 ML SYR (LEXISCAN) IV ONE
[2020-08-09] MEDS: CATHETER FLUSH 10 ML SYR IV PRN ×2 (07:44→09:16)
[2020-08-09 09:15] VITALS: BP 158/78
--- NOTE | 2020-08-09 14:41 | Cardiology Stress Test Report ---
Stress Test Report Date of Procedure/Referring: Date of Procedure: Aug 09, 2020 PCP Jose Ramsey MD Admitting Physician Shyann Chen MD Indications: HTN Baseline Heart Rate: 73 Baseline Blood Pressure: Blood Pressure Systolic: 158 Blood Pressure Diastolic: 78 Baseline Vitals Vital Signs Date Time Temp Pulse Resp B/P (MAP) Pulse Ox O2 Delivery O2 Flow Rate FiO2 08/09/20 09:15 93 16 158/78 (104) 97 Room Air Baseline EKG: Baseline EKG: NSR Summary After explaining the procedure to the patient, she signed a consent and then brought to the stress nuclear laboratory. Patient received 0.4 mg Lexiscan for stress test, ECG, heart rate and blood pressure were monitored continuously. Resting and stress dose of radio tracer were injected, imaging was acquired and reviewed in short axis, horizontal long axis and vertical long axis views. TID: 1.04 SSS: 2 SDS: 1 EF: 74 1. Patient tolerated Lexiscan well 2. No significant ischemia or infarction on SPECT images 3. Normal left ventricular size, EF 74% JOSE RAMSEY MD Aug 09, 2020 14:41
== END ==
LOC: CARD 08:00
PROVIDERS: ATTEND Internal Medicine Cardiovascular Disease
DX: R07.9 Chest pain, unspecified (principal); I10 Essential (primary) hypertension
CPT/HCPCS: 78452; 93017; A9502

== ENCOUNTER 2020-10-07 10:23 | Emergency (ER) | payer MEDICARE ==
[~2020-10-07] VITALS: Ht 160 cm; Wt 57.0 kg
[~2020-10-07 10:23] MED LIST changes: -REGADENOSON 0.4 MG/5 ML SYR (LEXISCAN) IV ONE
[2020-10-07] MEDS ORDERED: OXYMETAZOLINE (AFRIN) 0.05% NA 30 ML BTL ONE (10:25)
--- NOTE | 2020-10-07 10:49 | ED EENT ---
History of Present Illness General Chief Complaint: Nasal Problems Stated Complaint: NOSEBLEED Source: patient Exam Limitations: no limitations History of Present Illness Date Seen by Provider: October 07, 2020 Time Seen by Provider: 10:35 Initial Comments Patient is a 80-year-old female on Plavix with a history of coronary artery disease status post cardiac bypass and stents who presents to the emergency department today with a chief complaint of nosebleed. Patient states she was sitting at her bathroom counter putting on her make-up when she noticed that her nose started bleeding specifically from the left side. She states onset of bleeding was at about 830 this morning. She attempted to place direct pressure but was unable to get the bleeding to stop. She denies any nausea right now, no shortness of breath. No chest pain. She does have a history of hypertension. No recent illnesses such as fevers, chills, runny nose cough or congestion. All other review of systems reviewed and negative except as stated above. Timing/Duration: abrupt Severity: moderate Prearrival Treatment: squeezing nostrils Associated Symptoms: denies symptoms Allergies and Home Medications Allergies Coded Allergies: Sulfa (Sulfonamide Antibiotics) (Verified Allergy, Unknown, 01/03/09) Home Medications Acetaminophen 325 Mg Tablet, 325 MG PO Q8H PRN for PAIN-MILD, (Reported) Amlodipine Besylate 5 Mg Tablet, 5 MG PO HS, (Reported) Aspirin 81 Mg Tablet.dr, 81 MG PO HS, (Reported) Atorvastatin Calcium 20 Mg Tablet, 20 MG PO DAILY Prescribed by: JOSE BOATENG on 01/30/19751 Carvedilol 25 Mg Tablet, 25 MG PO BID, (Reported) Cholecalciferol (Vitamin D3) 2,000 Unit Capsule, 2,000 UNIT PO HS, (Reported) Cyanocobalamin (Vitamin B-12) 1,000 Mcg Tablet, 1,000 MCG PO HS, (Reported) Fluticasone Propionate 16 Gm [place].susp, 1 SPRAY NSEACH BID PRN for CONGESTION, (Reported) Folic Acid 1 Mg Tablet, 1 MG PO HS, (Reported) [place]-3/Dha/Epa/Fish Oil 1 Each Capsule, 1 EACH PO HS, (Reported) Ticagrelor 90 Mg Tablet, 90 MG PO BID Prescribed by: JOSE BOATENG on 01/30/19 075 Patient Home Medication List Home Medication List Reviewed: Yes Review of Systems Review of Systems Constitutional: see HPI Eyes: No Symptoms Reported Ears: No Symptoms Reported Nose: clots, epistaxis Throat: no symptoms reported Respiratory: no symptoms reported Cardiovascular: no symptoms reported Musculoskeletal: no symptoms reported All Other Systems Reviewed Negative Unless Noted: Yes Past Zshkvzs-Kequvg-Wqmywb Hx Patient Social History Drug of Choice: DENIES 2nd Hand Smoke Exposure: No Immunizations Up To Date Date of Pneumonia Vaccine: Jan 30, 2016 Past Medical History Surgeries: Yes (TONSILLECTOMY 1949;WISDOM TEETH;COLONOSCOPY/POLYPECTOMY;CABG;STENT) Adenoidectomy, Cardiac, CABG, Coronary Stent, Tonsillectomy Respiratory: No Currently Using CPAP: No Currently Using BIPAP: No Cardiac: Yes (SEE BELOW) Coronary Artery Disease, High Cholesterol, Hypertension, Irregular Heartbeat, Peripheral Vascular Neurological: Yes Vertigo Reproductive Disorders: No Genitourinary: No Gastrointestinal: Yes (DIVERTICULAR DISEASE NOTED ON SCREENING COLONOSCOPY) Diverticulosis, Polyps Musculoskeletal: Yes (CHRONIC NECK PAIN ) Endocrine: No HEENT: Yes (S/P T&A) Cancer: No Psychosocial: No Integumentary: Yes Psoriasis Blood Disorders: No Family Medical History CARDIAC HISTORY: -CORONARY ARTERY DISEASE -S/P 2 VESSEL CABG 2008 -CARDIAC CATH WITH PTCA AND STENT X 1 TO RCA 02/08/[address] BOATENG -MILD CAROTID DISEASE, NO INTERVENTION -PAROXYSMAL ATRIAL TACHYCARDIA Physical Exam Height, Weight, BMI Height: 5'5.00" Weight: 131lbs. oz. 59.142478rs; 21.71 BMI Method: General Appearance: WD/WN, no apparent distress Eyes: bilateral eye normal inspection, bilateral eye PERRL, bilateral eye EOMI Nose: active bleeding (Active bleeding from the left nare at the anterior septum there is an obvious little pulsatile arterial bleed) Mouth/Throat: normal mouth inspection, other (Patient has scant posterior pharynx bleeding) Neck: supple Cardiovascular: regular rate, rhythm Respiratory: lungs clear, normal breath sounds, no respiratory distress, no accessory muscle use Gastrointestinal: soft Neurologic/Psychiatric: alert, normal mood/affect Skin: normal color, warm/dry Progress/Results/Core Measures Results/Orders My Orders Orders - SHAKILA LEIJA MD Oxymetazoline 0.05% Nasal [place] (Afrin 0. (10/07/20 10:25) Lidocaine/Epi 1% 1:100,000 (Xylocaine 1% (10/07/20 11:15) Tranexamic Acid Injection (Cyklokapron I (10/07/20 11:15) Medications Given in ED Current Medications Medications Dose Ordered Sig/Marcos Route Start Time Stop Time Status Last Admin Dose Admin Lidocaine/ Epinephrine 10 ml ONCE ONCE INJ 10/07/20 11:15 10/07/20 11:16 DC 10/07/20 11:40 10 ML Oxymetazoline HCl 30 ml STK-MED ONCE .ROUTE 10/07/20 10:25 10/07/20 10:35 DC 10/07/20 10:40 30 ML Tranexamic Acid ONCE ONCE NA 10/07/20 11:15 10/07/20 11:16 DC 10/07/20 11:40 10 MG Progress Progress Note : Time: 13:02 Progress Note After multiple interventions in order to try and alleviate the nosebleed patient finally had cautery done a second time. We were able to achieve hemostasis with silver nitrate sticks. Patient also had topical application of TXA, Afrin and lidocaine with epi mixture on a Merocel pack. This did not stem the tide of bleeding. Finally was able to get the bleeding stopped with the suctioning and using the silver nitrate sticks. Patient's vital signs have been stable, she is not tachycardic or hypotensive. CBC was not checked at this visit. She is adv ised when she goes home to try to avoid sneezing, picking or blowing her nose or anything else that might disrupt the hemostasis of the left nare. She is advised to get some bhpl-xrv-qvlagdu saline gel Q-tips in order to keep her nasal mucosa nice and moist. She is advised not to do this for 24 hours however. She will follow up with Dr. Nesbitt this week as well as her primary care physician. She has no further questions or concerns. Patient is stable for discharge. Departure Impression Primary Impression: Epistaxis Disposition: HOME, SELF-CARE Condition: Stable Departure-Patient Inst. Decision time for Depature: 13:03 Referrals: AIRAM PARTIDA MD, HOLLY A MD (PCP/Family) Primary Care Physician Patient Instructions: Nosebleeds (DC) Add. Discharge Instructions: Continue your home daily medications as previously prescribed. You can get ftup-zcy-phmhlli saline gel Q-tips which will help keep your nasal mucosa nice and moist. You can find these in the aisle at [facility] or [facility] where the nose sprays are as well as the sinus rinses. Please come back to the emergency room if you experience any further worsening nosebleeding, lightheadedness, fever or for any other emergent concerning symptoms develop. I have given you contact information for Dr. Partida who is the ear nose and throat doctor on-call for any further issues with nosebleeds. SHAKILA LEIJA MD October 07, 2020 10:49
[2020-10-07] MEDS ORDERED: TRANEXAMIC ACID 100 MG/ML 10 ML INJECTION ONE (11:15)
[2020-10-07] MEDS ORDERED: LIDOCAINE/EPI 1%-1:100,000 (XYLOCAINE) 10 ML INJ ONE (11:15)
[2020-10-07 13:10] VITALS: BP 164/92
== END 2020-10-07 13:10 | disposition home or self-care (01) ==
LOC: EDUNIT# 10:23 → ER 10:24
DX: R04.0 Epistaxis (principal); I10 Essential (primary) hypertension; I25.10 Atherosclerotic heart disease of native coronary artery without angina pectoris; E78.00 Pure hypercholesterolemia, unspecified; G89.29 Other chronic pain; M54.2 Cervicalgia; Z95.1 Presence of aortocoronary bypass graft; Z95.5 Presence of coronary angioplasty implant and graft; Z79.82 Long term (current) use of aspirin; Z79.899 Other long term (current) drug therapy

== ENCOUNTER → 2021-10-16 | Outpatient (CLI) | payer MEDICARE ==
--- NOTE | 2021-10-16 16:25 | Diagnostic Imaging Report ---
INDICATION: Neck pain. TECHNIQUE/COMPARISON: AP, lateral, and odontoid views of the cervical spine were obtained. No previous study is available at this time for comparison. FINDINGS: There is reversal of the cervical lordosis centered at the C4 level. There is grade 1 anterolisthesis of C3 on C4 and C4 on C5 with advanced disc space narrowing and marginal spurring at the C5-C6 level. No definite acute fracture is identified. The prevertebral soft tissues are unremarkable. The odontoid is intact. IMPRESSION: Rather extensive degenerative findings in the cervical spine with reversal of the cervical lordosis. This does result in grade 1 anterolisthesis of C3 on C4 and C4 on C5 with advanced C5-C6 degenerative findings. Otherwise, there is no evidence of an acute abnormality. Dictated by: Dictated on workstation # [id number]
== END ==
LOC: RAD 15:28
PROVIDERS: ATTEND Nurse Practitioner Family
DX: M47.812 Spondylosis without myelopathy or radiculopathy, cervical region (principal); M43.12 Spondylolisthesis, cervical region
CPT/HCPCS: 72040

== ENCOUNTER → 2021-10-23 | Outpatient (CLI) | payer MEDICARE ==
--- NOTE | 2021-10-23 14:26 | Diagnostic Imaging Report ---
INDICATION: Postmenopausal state COMPARISON: None available FINDINGS: AP Spine L1-L4: [BMD (g/cm2): 1.302] [T-Score: 0.8] [Z-Score: 3.0] [BMD Previous: NA] [BMD % Change: NA] LT Hip Neck: [BMD (g/cm2): 0.992] [T-Score: -0.3] [Z-Score: 2.0] LT Hip Total: [BMD (g/cm2):0.995] [T-Score:-0.1] [Z-Score: 2.1] [BMD Previous: NA] [BMD % Change: NA] RT Hip Neck: [BMD (g/cm2):0.927] [T-Score:-0.8] [Z-Score:1.6] RT Hip Total: [BMD (g/cm2):0.970] [T-score:-0.3] [Z-Score:1.9] [BMD Previous:NA] [BMD % Change:NA] *Indicates significant change from prior examination based on 95% confidence level. World Health Organization criteria for BMD interpretation classify patients as Normal (T-score at or above -1.0), Osteopenic (T-score between -1.0 and -2.5) or Osteoporotic (T-score at or below -2.5). LIMITATIONS AND MODIFICATION: None. IMPRESSION: 1. Normal bone mineral density. 2. Baseline examination. 3. See below National Osteoporosis Foundation guidelines on when to potentially initiate pharmacologic therapy. Based on the National Osteoporosis Foundation Guidelines, pharmacologic treatment should be initiated in any of the following, unless clinical conditions suggest otherwise: * Any patient with prior fragility fracture of the hip or vertebrae. A spine fracture indicates 5X risk for subsequent spine fracture and 2X risk for subsequent hip fracture. * Osteoporosis (T-score <-2.5). * Postmenopausal women and men age 50 and older with low bone mass/osteopenia (T-score between -1.0 and -2.5) by DXA and 10-year major osteoporotic fracture greater than 20% or a 10-year probability of hip fracture greater than 3%. These fracture risks are supplied above in the FRAX score, if applicable. * Clinician judgement and/or patient preferences may indicate treatment for people with 10-year fracture probabilities above or below these levels. Dictated by: Dictated on workstation # [id number]
== END ==
LOC: RAD 12:30
PROVIDERS: ATTEND Nurse Practitioner Family
DX: Z78.0 Asymptomatic menopausal state (principal)
CPT/HCPCS: 77080

== ENCOUNTER → 2021-10-31 | Outpatient (CLI) | payer MEDICARE ==
--- NOTE | 2021-10-31 15:02 | Diagnostic Imaging Report ---
PROCEDURE: MR imaging cervical spine without contrast. TECHNIQUE: Multiplanar, multisequence MR imaging of the cervical spine was performed without contrast. DATE: October 31, 2021. COMPARISON: Cervical spine radiographs October 16, 2021. INDICATION: 81-year-old female, chronic neck pain. FINDINGS: There is a reversal of the normal cervical lordosis. There is no evidence of a diffuse marrow infiltrating or replacing process. There is no identified focal concerning bone lesion. There is severe disc height loss with associated Modic endplate degenerative related changes at C5-C6. There is mild endplate degenerative change and disc height loss at C4-C5 and C6-C7. The visualized spinal cord is unremarkable. There are small multilevel perineural cysts. 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 C2-C3: There is no disc bulge. There are bilateral facet degenerative changes. There is no foraminal narrowing. There is no spinal canal stenosis. C3-C4: There is no disc bulge. There are bilateral facet degenerative changes. There is no foraminal narrowing. There is no spinal canal stenosis. C4-C5: There is a small posterior disc osteophyte complex. There are mild bilateral facet degenerative changes. There is no foraminal narrowing. There is mild spinal canal stenosis. C5-C6: There is a posterior disc osteophyte complex. There are mild left uncovertebral degenerative changes. There is mild left foraminal narrowing. There is moderate spinal canal stenosis. C6-C7: There is a posterior disc osteophyte complex somewhat eccentric to the right. The uncovertebral and facet joints are unremarkable. There is mild right foraminal narrowing. There is mild spinal canal stenosis. C7-T1: There is no disc bulge. There are bilateral uncovertebral degenerative changes. There is no foraminal narrowing. There is no spinal canal stenosis. IMPRESSION: Multilevel disc, uncovertebral and facet degenerative changes of the cervical spine as described in detail level by level above. Dictated by: Dictated on workstation # [id number]
== END ==
LOC: RAD 09:30
PROVIDERS: ATTEND Nurse Practitioner Family
DX: M47.812 Spondylosis without myelopathy or radiculopathy, cervical region (principal); M47.813 Spondylosis without myelopathy or radiculopathy, cervicothoracic region; M48.02 Spinal stenosis, cervical region
CPT/HCPCS: 72141

== ENCOUNTER 2021-12-07 09:55 | Outpatient (RCR) | payer MEDICARE | END 2021-12-09 | disposition home or self-care (01) | PROVIDERS: ATTEND Nurse Practitioner Family | DX: M54.2 Cervicalgia (principal); M54.50 Low back pain, unspecified; I10 Essential (primary) hypertension ==

== ENCOUNTER 2021-12-28 08:59 | Outpatient (RCR) | payer MEDICARE | END 2022-01-09 | disposition home or self-care (01) | PROVIDERS: ATTEND Nurse Practitioner Family | DX: M54.2 Cervicalgia (principal); M54.50 Low back pain, unspecified; I10 Essential (primary) hypertension ==

== ENCOUNTER 2022-01-21 10:15 | Outpatient (RCR) | payer MEDICARE | END 2022-02-08 | disposition home or self-care (01) | PROVIDERS: ATTEND Nurse Practitioner Family | DX: M54.2 Cervicalgia (principal); M54.50 Low back pain, unspecified; I10 Essential (primary) hypertension ==

== ENCOUNTER → 2022-08-27 | Outpatient (CLI) | payer MEDICARE | LOC: CARD 12:01 | PROVIDERS: ATTEND Internal Medicine Cardiovascular Disease | DX: I11.9 Hypertensive heart disease without heart failure (principal); I34.0 Nonrheumatic mitral (valve) insufficiency; I07.1 Rheumatic tricuspid insufficiency; I35.1 Nonrheumatic aortic (valve) insufficiency | CPT/HCPCS: 93306 ==

== ENCOUNTER → 2022-09-18 | Outpatient (CLI) | payer MEDICARE ==
[~2022-09-18] MED LIST changes: +CATHETER FLUSH 10 ML SYR IVP PRN
[2022-09-18 09:05] VITALS: BP 160/82
--- NOTE | 2022-09-18 15:57 | Cardiology Stress Test Report ---
Stress Test Report Date of Procedure/Referring: Date of Procedure: September 18, 2022 PCP Israel Chen MD Admitting Physician Admitting Physician: Attending Physician: Otilio Ramsey MD Indications: HTN Baseline Heart Rate: 78 Baseline Blood Pressure: Blood Pressure Systolic: 160 Blood Pressure Diastolic: 82 Vital Signs Date Time Temp Pulse Resp B/P (MAP) Pulse Ox O2 Delivery O2 Flow Rate FiO2 09/18/22 09:05 78 160/82 (108) Baseline Vital Signs Vital Signs Date Time Temp Pulse Resp B/P (MAP) Pulse Ox O2 Delivery O2 Flow Rate FiO2 09/18/22 09:05 78 160/82 (108) Baseline EKG: Baseline EKG: NSR Summary: After explaining the procedure and details to the patient, she signed the consent and was brought to the stress nuclear laboratory. Patient exercised on standard Pardeep protocol, EKG, heart rate and blood pressure were monitored continuously, resting and stress doses of radio tracer were injected, imaging was acquired and reviewed in the short axis, horizontal long axis and vertical long axis views Patient was able to exercise for a total of 2 minutes on Pardeep protocol, METs 3.2 Maximum heart rate 160 Maximum blood pressure 243/112 Stress EKG, Minimal nondiagnostic changes Recovery EKG, Return to baseline TID: 0.82 SSS: 2 SDS: 0 EF: 81 Conclusion: Poor exercise tolerance for 2 minutes on standard Pardeep protocol, 3.2 METS, achieving over 100% of maximal expected heart rate Nondiagnostic EKG changes with exercise return to baseline during recovery Severe hypertensive response to exercise with peak blood pressure 243/112 return to baseline during recovery No significant ischemia or infarction noted on SPECT images Small left ventricular size with hypercontractility, ejection fraction 81% Copy Copies To 1: ISRAEL CHEN MD, BASHAR J MD September 18, 2022 15:57
== END ==
LOC: CARD 07:00
PROVIDERS: ATTEND Internal Medicine Cardiovascular Disease
DX: I10 Essential (primary) hypertension (principal)
CPT/HCPCS: 78452; 93017; A9502